=== PATIENT | female | born 1955 | race Asian ===

== ENCOUNTER 2018-02-10 10:44 | Emergency (ER) | payer OTHER ==
[2018-02-10 10:49] VITALS: BP 160/95; PULSE 85; TEMP 98.1; BMI 25.2
[2018-02-10] MEDS ORDERED: IBUPROFEN 600 MG TABLET (FP) PO ONE ×2 (11:37→11:40)
--- NOTE | 2018-02-10 11:43 | PDOC ---
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 Many years ago patient had meniscus surgery and feels may have reinjured that same area. Denies numbness or tingling to foot , no other injury. Has taken no medications for relief. Occurred: reports: just prior to arrival Severity: reports: mild Pain Location: reports: lower extremity (knee) Modifying Factors: improves with: None Associated Symptoms (Fall): denies symptoms Past History - Travel Traveled outside of the country in the last 30 days: No Close contact w/someone who was outside of country & ill: No - Past Medical History Allergies/Adverse Reactions: Allergies Allergy/AdvReac Type Severity Reaction Status Date / Time No Known Allergies Allergy Verified 02/10/18 10:46 Home Medications: Ambulatory Orders Naproxen [Naprosyn -] 500 mg PO BID #14 tablet 02/10/18 COPD: No HTN: Yes - Suicide/Smoking/Psychosocial Hx Smoking History: Never smoked Information on smoking cessation initiated: No Hx Alcohol Use: No Drug/Substance Use Hx: No Substance Use Type: None Review of Systems - Review of Systems Able to Perform ROS?: Yes Is the patient limited French proficient: Yes Constitutional: Yes: See HPI. No: Symptoms Reported, Fever HEENTM: No: Symptoms Reported Respiratory: No: Symptoms reported Musculoskeletal: Yes: Symptoms Reported, See HPI All Other Systems: Reviewed and Negative *Physical Exam - Vital Signs Last Vital Signs Temp Pulse Resp BP Pulse Ox 98.1 F 85 18 160/95 100 02/10/18 10:46 02/10/18 10:46 02/10/18 10:46 02/10/18 10:46 02/10/18 10:46 - Physical Exam General Appearance: Yes: Nourished, Appropriately Dressed, Apparent Distress, Mild Distress HEENT: positive: DONTA, Normal ENT Inspection, TMs Normal, Pharynx Normal Neck: positive: Supple. negative: Tender Gastrointestinal/Abdominal: positive: Soft Musculoskeletal: positive: Normal Inspection, Decreased Range of Motion. negative: Muscle Spasm Extremity: positive: Normal Capillary Refill. negative: Normal Range of Motion (limited range of motion secondary to pain to this. Aspect of knee joint. Patella is mobile but has mild swelling. Tenderness is reproduced along the medial and lateral aspect of the knee, and some posterior fossa tenderness. No crepitus or step-offs, no pretibial tenderness. Neurovascular intact to foot.) Integumentary: positive: Normal Color, Warm, Pale Neurologic: positive: color matcher II-XII NML intact, Fully Oriented, Alert, Normal Mood/ Affect, Normal Response Progress Note - Progress Note Progress Note: Left knee strain, probable meniscus reinjury. Will immobilize, and have follow- up with orthopedist *DC/Admit/Observation/Transfer Diagnosis at time of Disposition: Strain of left knee Qualifiers: Encounter type: initial encounter Qualified Code(s): S86.912A - Strain of unspecified muscle(s) and tendon(s) at lower leg level, left leg, initial encounter - Discharge Dispostion Disposition: HOME Condition at time of disposition: Stable Admit: No - Prescriptions Prescriptions: Naproxen [Naprosyn -] 500 mg PO BID #14 tablet - Referrals Referrals: Urbano Olsen MD [Staff Physician] - Tucker Justin MD [Primary Care Provider] - - Patient Instructions Printed Discharge Instructions: DI for Knee Pain Additional Instructions: Rest, ice to area on and off for 15 minutes 4-6 times a day Avoid heavy lifting or exercise until pain and swelling is resolved or until further directed Keep area highly elevated to reduce swelling Use splints/Luis wrap as directed Followup with orthopedist in one to 2 days if not improving, if significantly improved may wait one week for followup with orthopedist May use ibuprofen 2-200 mg tablets every 6 hours/ or Naprosyn 500 mg every 8 hours as needed for pain - Post Discharge Activity Forms/Work/School Notes: Back to Work
== END 2018-02-10 11:55 | disposition home or self-care (01) ==
LOC: JERFT 10:44
DX: S86.912A Strain of unspecified muscle(s) and tendon(s) at lower leg level, left leg, initial encounter (principal); W31.89XA Contact with other specified machinery, initial encounter; Y93.89 Activity, other specified; Y92.239 Unspecified place in hospital as the place of occurrence of the external cause; Y99.0 Civilian activity done for income or pay; I10 Essential (primary) hypertension
CPT/HCPCS: 99281-25

== ENCOUNTER 2020-04-24 18:46 | Emergency (ER) | payer OTHER ==
--- NOTE | 2020-04-24 18:51 | PDOC ---
Rapid Medical Evaluation Chief Complaint: Head/Neck problem Time Seen by Provider: 04/24/20 18:49 Medical Evaluation: Allergies Allergy/AdvReac Type Severity Reaction Status Date / Time No Known Allergies Allergy Verified 02/10/18 10:46 04/24/20 18:49 64 year old female pmhx of HTN employee here presents to the ED complaining of BECKMAN and neck pain. Took BP upstairs and states it was elevated came to the ED. Denies CP SOB dizziness, blurry vision. PE: Chest CTA RRR Neuro benign Plan EKG Cardiac labs Chest XR Pt to precede to Ed for further eval and treatment at the discretion of ED provider. 04/24/20 18:51 Discharge Disposition - Discharge Dispostion Condition at time of disposition: Stable - Referrals - Patient Instructions - Post Discharge Activity
[2020-04-24 18:52] VITALS: TEMP 98.6; BMI 25.9
[2020-04-24] MEDS ORDERED: ACETAMINOPHEN 500 MG TABLET (FP) PO ONE (19:34)
[2020-04-24] MEDS ORDERED: amLODIPine BESYLATE 2.5 MG TABLET (FP) PO ONE (19:44)
--- NOTE | 2020-04-24 19:44 | PDOC ---
History of Present Illness - General Chief Complaint: Blood Pressure Problem Stated Complaint: HIGH BLOOD PRESSURE Time Seen by Provider: 04/24/20 18:49 History Source: Patient Exam Limitations: No Limitations - History of Present Illness Initial Comments: 04/25/20 06:07 64F PMH HTN p/w gradual onset nonradiating neck pain and anterior headache starting around 3pm today while on shift. 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 Endorses prior similar episodes with stress. Checked her BP and was found to be elevated. Denies auditory, visual sx. Denies numbness, tingling, weakness. Denies chest pain, sob, f/c, n/v/d, URI sx. NKDA. Denies etoh, tobacco, drugs. Past History - Medical History Allergies/Adverse Reactions: Allergies Allergy/AdvReac Type Severity Reaction Status Date / Time No Known Allergies Allergy Verified 02/10/18 10:46 Home Medications: Ambulatory Orders Naproxen [Naprosyn -] 500 mg PO BID #14 tablet 02/10/18 COPD: No HTN: Yes - Immunization History Immunization Up to Date: No - Psycho-Social/Smoking History Smoking History: Never smoked Have you smoked in the past 12 months: No Information on smoking cessation initiated: No - Substance Abuse Hx (Audit-C & DAST Scrn) How often the patient has a drink containing alcohol: Never Score: In Men: 4 or > Positive; In Women: 3 or > Positive: 0 Screen Result (Pos requires Nsg. Audit-10AR): Negative In the last yr the pt used illegal drug/Rx for NonMed reason: No Score: Yes response is considered Positive: 0 Screen Result (Positive result requires Nsg. DAST-10): Negative Review of Systems - Review of Systems Comments:: 04/25/20 06:07 CONSTITUTIONAL: Denies F / C HEENT: endorses headache and neck pain. Denies lightheadedness, dizziness, changes in vision / hearing, diplopia, blurry vision, sore throat, rhinorrhea RESP: Denies SOB, cough, orthopnea, SHAFER CARD: Denies chest pain, palpitations GI: Denies N / V / D, abdominal pain, bloody stool, inability to tolerate PO : Denies dysuria, hematuria, frequency NEURO: Denies numbness, tingling, weakness MSK: Denies back pain SKIN: Denies rashes *Physical Exam - Vital Signs Last Vital Signs Temp Pulse Resp BP Pulse Ox 98.6 F 89 16 181/123 H 100 04/24/20 18:49 04/24/20 18:49 04/24/20 18:49 04/24/20 18:49 04/24/20 18:49 - Physical Exam 04/25/20 06:07 VS: BP at bedside 170s/90s GEN: Well appearing, NAD, comfortable. AAOx3. HEENT: NC/AT, EOMI, PERRL. No facial asymmetry. Normal voice. Supple neck w/ FROM. No neck TTP CV: S1/S2, RRR, no m/r/g LUNG: CTAB, no wheezes, crackles, rales, rhonchi. GI: Soft, ndnt, +BS, no guarding, no rebound. No masses. Neg CVAT b/l. MSK: symmetric radial pulses. No obvious deformities of all extremities. SKIN: Warm, dry, no rashes appreciated. PSYCH: Normal mood and affect. NEURO: Moving all extremities well. 5/5 strength UE and LE b/l. Symmetric sensation. ED Treatment Course - LABORATORY CBC & Chemistry Diagram: 04/24/20 19:22 04/24/20 19:22 Medical Decision Making - Medical Decision Making 04/24/20 19:41 64F PMH HTN p/w gradual onset nonradiating neck pain and headache after stressful episode. Found to have elevated BP. No visual sx, neuro intact. Likely muscular, will eval for HTN induced sx, - cbc, cmp, cardiac - CXR - EKG 1940 NSR, intervals wnl, no MAYA/D - tylenol, lidocaine patch - likely dc home 04/24/20 21:04 labs reviewed CXR image reviewed w/o any acute or obvious pathology ambulated w/ normal gait to XR dc home Discharge - Discharge Information Problems reviewed: Yes Clinical Impression/Diagnosis: Neck strain, Elevated blood pressure reading, Acute stress reaction Condition: Stable Disposition: HOME - Admission No - Follow up/Referral Referrals: Tucker Justin MD [Primary Care Provider] - - Patient Discharge Instructions Patient Printed Discharge Instructions: DI for High Blood Pressure Additional Instructions: Take Tylenol as directed on the label for pain. You may use a lidocaine patch for pain; these can be purchased over the counter. Follow the dosing instructions on the box. Continue your home medications as prescribed. Follow up with your Primary Care Doctor regarding this ED visit in the next 14- 21 days. Return to the nearest Emergency Department if you experience new or worsening symptoms, including but not limited to: - visual symptoms, changes in strength or sensation - fevers, chest pain, shortness of breath - anything that concerns you - Post Discharge Activity Work/Back to School Note: Back to Work
[2020-04-24] MEDS ORDERED: ACETAMINOPHEN 325 MG TABLET (FP) ONE (19:49)
[2020-04-24 19:50] LABS: INR 1.07 (0.83-1.09); PROTHROMBIN TIME (PATIENT) 12.6 SEC (9.7-13.0)
[2020-04-24 20:04] LABS: ALBUMIN 3.8 g/dl (3.4-5.0); ALK PHOS 130 U/L (45-117); ANION GAP 6 MMOL/L (8-16); BILIRUBIN,TOTAL 0.3 mg/dL (0.2-1); CALCIUM 9.2 mg/dL (8.5-10.1); CHLORIDE 105 mmol/L (98-107); CO2 29 mmol/L (21-32); GLUCOSE,RANDOM 114 mg/dL (74-106); POTASSIUM 4.2 mmol/L (3.5-5.1); SGOT/AST 22 U/L (15-37); SGPT/ALT 25 U/L (13-61); SODIUM 140 mmol/L (136-145); TOT PROT 8.4 g/dl (6.4-8.2)
[2020-04-24] MEDS ORDERED: LIDOCAINE 5% TOPICAL PATCH TP ONE (20:05)
[2020-04-24 20:09] LABS: BASO % 0.7 % (0-2.0); EOS % 3.2 % (0-4.5); HEMATOCRIT 38.9 % (32.4-45.2); LYMPH % 44.7 % (8-40); MCH 29.7 pg (25.7-33.7); MCHC 33.3 g/dl (32.0-36.0); MEAN CELL VOLUME 89.3 fl (80-96); MEAN PLT VOLUME 9.1 fl (7.5-11.1); MONO % 6.2 % (3.8-10.2); NEUT % 45.2 % (42.8-82.8); PLATELET COUNT 198 K/MM3 (134-434); RBC 4.36 M/mm3 (3.60-5.2); WHITE BLOOD COUNT 6.4 K/mm3 (4.0-10.0)
--- NOTE | 2020-04-24 20:16 | PDOC ---
Documentation entered by Maxi Haines SCRIBE, acting as scribe for Tayla Olivo DO. Tayla Olivo DO: This documentation has been prepared by the Teofilo avila Nirvannie, SCRIBE, under my direction and personally reviewed by me in its entirety. I confirm that the documentation accurately reflects all work, treatment, procedures, and medical decision making performed by me. Attending Attestation - Resident Resident Name: Urbano Draper - ED Attending Attestation I have performed the following: I have examined & evaluated the patient, The case was reviewed & discussed with the resident, I agree w/resident's findings & plan, Exceptions are as noted - HPI HPI: 04/24/20 20:02 The patient is a 64 year old female with a significant past medical history of HTN who presents to the ED with gradual onset headache and neck pain. 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 She tested her blood pressure at which time it was found to be elevated, prompting her arrival to the ED. While in the ED, the patient is hypertensive to 181/123 mmHg. She denies any numbness, tingling, weakness, chest pain, or shortness of breath. Allergies: NKDA Primary Care Physician: Dr. Justin Meds: Metoprolol TID unknown dosage - Physicial Exam PE: 04/24/20 20:06 Constitutional: Awake, alert, oriented. No acute distress. Head: Normocephalic. Atraumatic Eyes: PERRL. EOMI. Conjunctivae are not pale. ENT: Mucous membranes are moist and intact. Posterior pharynx without exudates or erythema. Uvula midline. Neck: +Mild bilateral paraspinal tenderness without stepoffs or deformities. No midline tenderness. Supple. Full ROM. No lymphadenopathy. Cardiovascular: Regular rate. Regular rhythm. S1, S2 regular. Distal pulses are 2+ and symmetric. Pulmonary/Chest: No evidence of respiratory distress. Clear to auscultation bilaterally No wheezing, rales or rhonchi. Abdominal: Soft and non-distended. There is no tenderness. No rebound, guarding or rigidity. No organomegaly. No palpable masses. Good bowel sounds. Back: No CVA tenderness. No midline C,T,or L spine tenderness. Musculoskeletal: No edema. No cyanosis. No clubbing. Full range of motion in all extremities. No calf tenderness. Radial/pedal pulses are intact and 2+ bilaterally Skin: Skin is warm and dry. No petechiae. No purpura. Neurological: Alert and oriented to person, place, and time. Cranial nerves II-XII are grossly intact. Normal speech. Strength is grossly symmetric. No sensory deficits. Psychiatric: Good eye contact. Normal interaction, affect and behavior. 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[employer]) -pt states when her bp goes up she gets posterior neck pain and a subtle caputo -no neuro deficits -symptoms resolving upon arrival in the ER -pt states bp was >200 earlier when she was feeling stressed -pt take metoprolol 50mg bid, scheduled for dose tonight before bed -bp currently is 164/87 in the ER during exam -given tylenol and neck pain resolving -no focal neuro deficits, no weakness or paresthesias, no midline neck ttp, no stepoffs or deformities -will monitor and reassess 04/24/20 20:26 trop neg labs reviewed mildly elevated protein mildly elevated ck 04/24/20 21:04 cxr clear labs reviewed and stable for dc to home suspect elevated bp from stress Heart Score/ECG Review - ECG Intrepretation Comment:: 04/24/20 20:27 sinus at 74, nl axis, nl interval, no acute st/t wave findings Discharge - Discharge Information Problems reviewed: Yes Clinical Impression/Diagnosis: Neck strain, Elevated blood pressure reading, Acute stress reaction Condition: Stable Disposition: HOME - Admission No - Follow up/Referral Referrals: Tucker Justin MD [Primary Care Provider] - - Patient Discharge Instructions Patient Printed Discharge Instructions: DI for High Blood Pressure Additional Instructions: Take Tylenol as directed on the label for pain. You may use a lidocaine patch for pain; these can be purchased over the counter. Follow the dosing instructions on the box. Continue your home medications as prescribed. Follow up with your Primary Care Doctor regarding this ED visit in the next 14- 21 days. Return to the nearest Emergency Department if you experience new or worsening symptoms, including but not limited to: - visual symptoms, changes in strength or sensation - fevers, chest pain, shortness of breath - anything that concerns you - Post Discharge Activity
[2020-04-24] MEDS ORDERED: LIDOCAINE 5% TOPICAL PATCH ONE (21:05)
[2020-04-24 21:14] VITALS: BP 153/87; PULSE 69
[2020-04-24] MEDS ORDERED: LIDOCAINE PATCH REMOVAL MC SCH (22:00)
--- NOTE | 2020-04-25 11:53 | EKG ---
Test Reason : Blood Pressure : / mmHG Vent. Rate : 074 BPM Atrial Rate : 074 BPM P-R Int : 168 ms QRS Dur : 076 ms QT Int : 382 ms P-R-T Axes : 046 004 034 degrees QTc Int : 424 ms POOR DATA QUALITY, INTERPRETATION MAY BE ADVERSELY AFFECTED NORMAL SINUS RHYTHM NORMAL ECG WHEN COMPARED WITH ECG OF 10-JUN-2011 16:34, NO SIGNIFICANT CHANGE WAS FOUND Confirmed by OMID SAHA, KATYA ([id number]) on 04/25/2020 11:53:08 AM Referred By: Confirmed By:KATYA ANNE MD
== END 2020-04-24 21:23 | disposition home or self-care (01) ==
LOC: JER 18:46
DX: S16.1XXA Strain of muscle, fascia and tendon at neck level, initial encounter (principal); R03.0 Elevated blood-pressure reading, without diagnosis of hypertension; F43.0 Acute stress reaction
CPT/HCPCS: 36415; 71046-TC-FY; 80053; 82550; 82553; 83880; 84484; 85025; 85610; 93005; 93010; 99285-25

== ENCOUNTER 2021-01-11 19:46 | Emergency (ER) | payer OTHER ==
[2021-01-11 19:56] VITALS: BP 185/91; PULSE 79; TEMP 98; BMI 24.6
== END 2021-01-11 21:13 | disposition home or self-care (01) ==
LOC: JERFT 19:46
DX: S89.92XA Unspecified injury of left lower leg, initial encounter (principal)
CPT/HCPCS: 73562-TC-LT-FY; 99283-25